=== PATIENT | female | born 1995 | race Caucasian/White ===

== ENCOUNTER 2017-03-02 13:25 | Emergency (ER) | payer SELFPAY ==
[~2017-03-02] VITALS: Ht 149.9 cm; Wt 105.6 kg
[2017-03-02 13:30] VITALS: TEMP 36.7; Ht 149.9 cm; Wt 105.6 kg
[2017-03-02] MEDS ORDERED: IBUP-1050 PO (13:42)
[2017-03-02] MEDS ORDERED: NAPR1CAP12 PO (13:43)
--- NOTE | 2017-03-02 14:05 | EMERGENCY ROOM VISIT NOTE ---
ED Visit Note First contact with patient: 13:41 CHIEF COMPLAINT: Dental pain and sore throat. HISTORY OF PRESENT ILLNESS: This is a 21 old female patient who presents to the emergency department ambulatory complaining of sore throat for the last 3 days. She states that she developed pain in the right lower molar for the last 1 week. She states that she noticed swelling of her tonsils today and they seem hard and she noticed white discoloration on her tongue. The patient does not complain of a headache, abdominal pain, nausea, or vomiting. The patient has not had any shortness of breath. The patient does not know of anybody around them who has been sick. The patient has taken nothing. REVIEW OF SYSTEMS: A 6 system review of systems was completed with positives and pertinent negatives listed in the HPI. ALLERGIES: No known drug allergies MEDICATIONS: Patient denies PMH: Patient denies SOCIAL HISTORY: The patient lives locally. She is a smoker. PHYSICAL EXAM: Vital Signs: Reviewed Nurse's notes, temperature 36.7 C orally, the remainder of the vital signs were normal. GENERAL: This is a 21-year-old female, in no acute distress, non toxic in appearance, nondiaphoretic, well-developed well-nourished. SKIN: The skin was without rashes, erythema, edema, or bruising. Capillary reflex less than 2 seconds. HEAD: Normocephalic atraumatic. EARS: External auditory canals clear, tympanic membrane pearly pisano bilaterally without erythema EYES: Pupils equal round and reactive to light and accommodation. Conjunctivae without injection, sclerae without icterus. Extraocular movements intact. NOSE: Patent, turbinates without inflammation or discharge. MOUTH: Mucous membranes moist. Tonsils are bilaterally enlarged and erythematous with exudate. Pharynx negative for postnasal drip. The right lower molar is broken and very tender to palpation. There is no obvious swelling of the gum or obvious abscess. There is no swelling beneath the tongue. NECK: Supple without nuchal rigidity. HEART: Regular rate and rhythm without murmurs gallops or rubs. LUNGS: Clear to auscultation bilaterally without wheezes, rales or rhonchi. NEURO: Patient was alert and oriented to person place and time. ED COURSE: I examined the patient and the rapid strep test was negative. A backup culture was sent. The patient will be started on Pen-Vee K and given a prescription for [place]. She should follow-up with a dentist for further evaluation and management of the tooth. She should follow-up with her family doctor if the sore throat persists. She may need to be checked for mono. There is no evidence of peritonsillar abscess at this time. The patient was discharged home in good condition. Current/Historical Medications Scheduled Naproxen Sodium (Aleve), 3 TABS PO UD Penicillin V Potassium (Veetids), 500 MG PO QID Scheduled PRN Hydrocodone/Acetaminophen 5MG/325MG ([place] 5MG/325MG), 1 TABLET PO Q6 PRN for Pain Miscellaneous Medications Ibuprofen (Advil), 5 TABS PO Allergies Uncoded Allergies: PET DANDER (Allergy, Intermediate, WATERY EYES, ITCHY THROAT, HIVES, 03/02/17 ) Vital Signs Date Time Temp Pulse Resp B/P Pulse Ox O2 Delivery O2 Flow Rate FiO2 03/02/17 14:36 72 18 117/79 98 03/02/17 13:30 36.7 88 16 116/83 95 Room Air Departure Information Impression Primary Impression: Exudative tonsillitis Additional Impression: Pain, dental Dispostion Home / Self-Care Condition GOOD Prescriptions Penicillin V Potassium (Veetids) 500 Mg Tab 500 MG PO QID for 10 Days, #40 TAB Prov: Kianna Gonzalez PA-C 03/02/17 Hydrocodone/Acetaminophen 5MG/325MG ([place] 5MG/325MG) Tab 1 TABLET PO Q6 Y for Pain, #12 TAB For Initial Treatment Prov: Kianna Gonzalez PA-C 03/02/17 Referrals No Doctor, Assigned (PCP) Patient Instructions [facility] Additional Instructions Pen-Vee K 4 times daily for 10 days.[place] one tablet every 6 hours if needed for worse pain. Do not drink or drive while taking [place] and do not take with Tylenol. Followup with a dentist for definitive management of your tooth. Return with high fevers, worsening pain or swelling. Follow-up family doctor if the throat is not improving in 5-7 days. Problem Qualifiers
[2017-03-02] MEDS ORDERED: PENI-82 PO (14:21)
[2017-03-02] MEDS ORDERED: HYDR-5688 PO (14:21)
[2017-03-02 14:36] VITALS: BP 117/79; PULSE 72; O2SAT 98
== END 2017-03-02 14:37 | disposition home or self-care (01) ==
LOC: C.EDB 13:28 → C.EDD 14:37
DX: J03.90 Acute tonsillitis, unspecified (principal); K08.89 Other specified disorders of teeth and supporting structures; F17.200 Nicotine dependence, unspecified, uncomplicated